=== PATIENT | female | born 1960 | race Caucasian/White ===

== ENCOUNTER 2016-05-24 18:19 | Emergency (ER) | payer OTHER, MEDICARE ==
[~2016-05-24] VITALS: Ht 162.6 cm; Wt 70.8 kg
[~2016-05-24 18:19] MED LIST: AGGRENOX (D1 CAPSULE FT; AGGRENOX (D1 CAPSULE PO; AMITRIPTYLINE50 MG PO; ASPIRIN 81MG TA81 MG PO; BUSPIRONE HCL15 MG PO; CANE XX; CELEXA20 MG PO; ESGIC PLUS PO; GLYBURIDE 5MG TA5 MG PO; GLYBURIDE2.5 MG PO; KEFLEX 500MG.500 MG PO; LEVOTHYROXIN0.125 MG NG; METFORMIN1000 MG PO; METFORMIN500 MG PO; METOPROLOL SUCC50 M1 PO; METOPROLOL25 MG; MOTRIN600 M1 PO; PROMETHAZINE25 M1 PO; RESTORIL30 MG PO; SIMVASTATIN10 MG PO; SIMVASTATIN20 MG PO; SYNTHROID 0.0.125 MG PO; SYNTHROID0.075 MG PO; TEGRETOL 100MG100 MG PO; TYLENOL ES500 M1 PO; VICODIN 5/500 T1 TAB PO; VICODIN 7.5/501 EACH PO; VITAMIN B12500 MCG PO; VOLTAREN75 MG PO
--- NOTE | 2016-05-24 18:40 | Urgent Treatment Center Report ---
History of Present Issue Date/Time Seen by Provider 05/24/16 1835 Visit Reason Pt arrived:Walked Presenting Problem:PT STATES SHE WAS AT WORK TODAY WHEN SHE MISSTEPPED AND FELL. STATES TRYING TO CATCH HERSELF AND INJURED LEFT WRIST AT APPROX 1500. STATES TAKING THREE TYLENOL AT 1600 WITH MINIMAL RELIEF. Location if Accident:Work Onset of symptoms date/time:05/24/16 or onset unknown for: Have you (or family members/close friends) recently traveled outside the [place]? N If Yes, where/when: Have you had exposure to infectious disease within the past month? TB? Other? Specify: Source patient Exam Limitations no limitations Comment 56-year-old female presents today for LEFT wrist pain. Patient states she was at work was taken in order out and fell over the curb and caught herself with her LEFT wrist. Patient states wrist hurts with movement. Also scraped her RIGHT knee Band-Aids in place patient denies any pain in the knee. ALLERGIES Coded Allergies: No Known Allergies (05/24/16) Home Medications Active Scripts Ibuprofen (Motrin) 600 MG PO Q6HP PRN PAIN PER PATIENT #30 TAB Prov: 02/13/13 Reported Medications AMITRIPTYLINE HCL (Amitriptyline HCl) 50 MG PO QHS CITALOPRAM HYDROBROMIDE (Citalopram HBr) 20 MG PO DAILY METFORMIN HCL (Metformin) 1,000 MG PO BID #60 TAB Glyburide (Glyburide 5MG) 10 MG PO BID Metoprolol Succinate Xl (Metoprolol ER 50MG) 50 MG PO DAILY Levothyroxine Sodium (Synthroid 0.125MG) 175 MCG PO DAILY Acetaminophen (Tylenol Extra-Strength) 500 MG PO Q6HP PRN PAIN Buspirone Hcl 15 MG PO PRN PRN MOOD #270 History Medical History General CAD? No Angina: Yes [place]: Yes Hypertension? Yes Hyperlipidemia? Yes CHF? No DVT? No PE? No COPD? No Asthma? No Anemia? No GERD? No Gastric ulcers? No GI Bleed? No Hernia? No Thyroid Problems? Yes Hypothyroidism? Yes CVA? Yes Seizures? Yes Diabetes? Yes Insulin Dependent: No Insulin Pump: No Home FSBS? No Renal Insuffiency? No UTI? Yes Stones? Yes BPH? No GB Disease: No Nephritic Syndrome? No Asplenia? No Hepatitis? No Sickle Cell Disease? No Arthritis? No Migraines? No Cataracts? No Glaucoma? No MRSA? No HIV? No TB? No Anxiety? Yes Depression? Yes Cancer? No Immunization HX DT/Tetanus 1-4 YRS Flu NEVER Pneumonia NEVER Surgical Hx Previous Surgery?Y YAEL CARDIAC STENT X 1 GASTRIC BYPASS PAROTID MASS- BENIGN SKIN GRAFT CARPEL TUNNEL R HAND LITHOTRIPSY 03/2012 Family History Family HX Diabetes Yes CAD Yes Hypertension Yes Hyperlipidemia Yes Cancer Yes TB Yes Social History Smoking Hx Smoker: Current Every Day Smoker Tobacco: Yes Type Cigarettes Packs/day < 1 Pack Alcohol Alcohol: No Review of Systems All Other Systems Reviewed and Negative Musculoskeletal see HPI, joint pain, muscle pain Physical Exam Vital Signs Vital Signs Date Time Temp Pulse Resp B/P Pulse O2 O2 Flow FiO2 Ox Delivery Rate 05/24 1828 98.6 87 20 175/884 95 - WBC >12,000 or <4,000 or 10% bands? 2 or more SIRS Criteria Met? B/P:175/884 MAP:647 Creatinine >2.0? UA output<0.5ml/kg/hr for 2 hrs? Platelet count >100,000? Lactate >2.0mmol/1? INR >1.2 or PTT > than 60 sec? Evidence of Organ Dysfunction? Provider documented clinical suspician of infection? Sepsis Criteria Count: 1 Sepsis Risk: General Appearance normal appearance Eye Exam - bilateral eye normal exam, bilateral eye PERRL Respiratory Status Yes: trachea midline, chest symmetrical, non tender chest. No: respiratory distress. Lung Sounds bilateral: normal breath sounds, lungs clear. Cardiovascular normal exam, regular rate/rhythm Extremities limited range of motion, LEFT wrist painful to palpation pulses good Neurologic alert, normal exam, oriented x 3 Medical Decision Making LABS/Meds/Orders Pt receiving controlled substance in ED? No Results/Orders Orders Procedure Date/time Status WRIST-3 VIEWS-LT 05/24 1832 Active XRAY/CT/US XRAY/CT/US XRAY wrist XR interpretation by reviewed by me (and boris) Xray Results normal/NAD, no fracture seen Departure Departure Time of Disposition 1902 Disposition DC Home or Self Care(routine) Clinical Impression Primary Impression: Wrist sprain Qualifiers: Encounter type: initial encounter Laterality: left Qualified Code: S63.502A - Unspecified sprain of left wrist, initial encounter Condition STABLE Referrals ALON JIMENEZ (Family) Patient Instructions DI for Wrist Sprain Additional Instructions Tylenol Motrin as needed for pain or discomfort ice/rest where splint, follow up with PCP on Thursday if radiologist reads any abnormalities of x-ray will notify patient. at 4128
[2016-05-24 19:10] VITALS: BP 175/884
--- NOTE | 2016-05-24 20:19 | RADIOLOGY REPORT PS360 ---
WRIST-3 VIEWS-LT COMPARISON: Left wrist 05/04/2011 HISTORY: Left wrist pain after a fall TECHNIQUE: AP lateral and oblique views FINDINGS: The distal radius and ulna appear intact. There is spurring of the tip of the navicular bone and there is minor narrowing of the first carpometacarpal joint. There is no definite carpal bone fracture. The pronator quadratus fat pad is well seen which is a normal finding. There is some mild diffuse soft tissue swelling dorsal aspect of the wrist. IMPRESSION: Mild soft tissue swelling of mild arthritic change first metacarpal metacarpal joint, no fracture seen.
== END 2016-05-24 19:23 | disposition home or self-care (01) ==
LOC: UTC 18:19
DX: S63.502A Unspecified sprain of left wrist, initial encounter (principal)

== ENCOUNTER 2016-09-05 10:16 | Emergency (ER) | payer SELFPAY ==
[~2016-09-05] VITALS: Ht 162.6 cm; Wt 69.4 kg
--- OUTSIDE RECORDS SUMMARY | 2016-09-05 10:24 | External Medical Summary Rpt ---
Author Author , SYLVIE MERCER Address Unknown Phone [email or web address] Care Team Providers Care Policy Specialist Name Role Phone CANDIDO URIOSTEGUI DO, Unavailable Unavailable CADNIDO BALDERASUX DO Purpose Continuity of Care Document - 07-27-2012 through 2016 Problems Code Diagnosis DOS Provider Status 244.9 244.9 02-13-2013 Yunior HYPOTHYROID [facility] IS NOS Hospital 250.00 250.00 DIAB 02-13-2013 Yunior [facility], TYPE Hospital II OR UNSPEC TYPE, NOT UNCNTRLD 305.1 305.1 02-13-2013 Yunior TOBACCO USE [facility] 401.9 401.9 02-13-2013 Yunior HYPERTENSIO [facility] N NOS [facility] 413.9 413.9 02-13-2013 Yunior ANGINA [facility] PECTORIS [facility] NEC/NOS 923.21 923.21 02-13-2013 Yunior CONTUSION [facility] E849.8 E849.8 02-13-2013 Yunior ACCIDENT IN [facility] E885.9 E885.9 FALL 02-13-2013 Yunior FROM [facility] SLIPPING, Hospital TRIPPING, OR STUMBLING [facility] Allergies, Adverse Reactions, Alerts Type Allergy to substance Adverse Reaction to Substance Substance Reaction Severity NO KNOWN ALLERGIES Unknown Unknown Medications Na ND Rx Da Fi Fi Am Da Di Ph RX Ph St me C No te ll ll ou ys ag ar # ys at rm s nt no ma ic us Or Da si cy ia de te s n re d AL 00 06 0 No ED 05 -1 NI 40 8- Lo SO 01 20 ng NE 82 13 er 0 20 Ac ti MG ve TA BL ET CE 62 06 0 No PH 75 -1 AL 60 8- Lo EX 29 20 ng IN 48 13 er 8 50 Ac 0 ti MG ve CA PS UL E Vital Signs 02-13-2013 11:00 Name Value Interpretat Reference Comment ion Range Body 98.3 [degF] Temperature BP 73 mm[Hg] Diastolic BP Systolic 116 mm[Hg] Heart 75 /min Rate/Pulse O2% 98 % Respiratory 20 /min Rate 02-13-2013 10:56 Name Value Interpretat Reference Comment ion Range Body 98.3 [degF] Temperature BP 73 mm[Hg] Diastolic BP Systolic 116 mm[Hg] Heart 75 /min Rate/Pulse O2% 98 % Respiratory 20 /min Rate 07-27-2012 01:28 Name Value Interpretat Reference Comment ion Range BP 95 mm[Hg] Diastolic BP Systolic 133 mm[Hg] Heart 82 /min Rate/Pulse O2% 97 % Respiratory 20 /min Rate 07-27-2012 01:25 Name Value Interpretat Reference Comment ion Range BP 95 mm[Hg] Diastolic BP Systolic 133 mm[Hg] Heart 82 /min Rate/Pulse O2% 97 % Respiratory 20 /min Rate Results Labs Lab Lab Date Result Refere Interp Status Commen Order Detail nces retati t Range on STREP SCREEN (RAPID) (07-27-2012 01:05) STREP NEGATIV complet SCREEN 013 E ed (RAPID) 01:05 Encounters Encounter Start End Date Code Location Performer Type Date Emergency UZMA URIOSTEGUI DO (ER) 4 10:26 4 11:[address] [facility] Emergency UZMA Ogden MD (ER) 3 00:56 3 01:28 [facility]
--- OUTSIDE RECORDS SUMMARY | 2016-09-05 10:24 | External Medical Summary Rpt ---
Author Author , SYLVIE MERCER Address Unknown Phone [email or web address] Care Team Providers Care Oem Sales Manager Name Role Phone CANDIDO URIOSTEGUI DO, Unavailable Unavailable CANDIDO BALDERASUX DO Purpose Continuity of Care Document - 07-27-2012 through 2016 Problems Code Diagnosis DOS Provider Status 244.9 244.9 02-13-2013 Yunior HYPOTHYROID [facility] IS NOS Hospital 250.00 250.00 DIAB 02-13-2013 Yunior [facility], TYPE Hospital II OR UNSPEC TYPE, NOT UNCNTRLD 305.1 305.1 02-13-2013 Yunior TOBACCO USE [facility] 401.9 401.9 02-13-2013 Yunior HYPERTENSIO [facility] N NOS [facility] 413.9 413.9 02-13-2013 Yunior ANGINA [facility] PECTORIS [facility] NEC/NOS 923.21 923.21 02-13-2013 Yunior CONTUSION [facility] E849.8 E849.8 02-13-2013 Yunior ACCIDENT IN [facility] E885.9 E885.9 FALL 02-13-2013 Yunior FROM [facility] SLIPPING, Hospital TRIPPING, OR STUMBLING [facility] Allergies, Adverse Reactions, Alerts Type Allergy to [...] ia de te s n re d [place] 00 06 0 No ED 05 -1 [...] URIOSTEGUI DO (ER) 4 10:26 4 11:01 [facility] Emergency UZMA Ogden MD (ER) 3 00:56 3 01:28 [facility]
--- OUTSIDE RECORDS SUMMARY | 2016-09-05 10:25 | External Medical Summary Rpt ---
Demographics Preferred Language Turkmen Marital Status Unknown Yazdanism Affiliation Unknown Race Unknown Ethnic Group Unknown Author Author , SYLVIE MERCER Address Unknown Phone Immunization Unable to retrieve immunization data due to connection failure with Immunization Registry. Please try again later.
--- OUTSIDE RECORDS SUMMARY | 2016-09-05 10:25 | External Medical Summary Rpt ---
Author Author [employer] Organization [employer] Address Unknown Phone Unavailable Purpose Continuity of Care Document - through 2016
--- OUTSIDE RECORDS SUMMARY | 2016-09-05 10:25 | External Medical Summary Rpt ---
Author Author SYLVIE Gomez, [employer] Organization [employer] Address Unknown Phone Unavailable
--- OUTSIDE RECORDS SUMMARY | 2016-09-05 10:25 | External Medical Summary Rpt ---
Demographics Preferred Language Slovak Marital Status Unknown Restorationist Affiliation Unknown Race Unknown Ethnic Group Unknown Author Author , SYLVIE MERCER Address Unknown Phone Immunization Unable to retrieve immunization data due to connection failure with Immunization Registry. Please try again later.
[2016-09-05] MEDS ORDERED: CYANOCOBAL1000 MCG/M PO (10:33)
[2016-09-05] MEDS ORDERED: POTASSIUM CHLO10 ME3 PO (10:34)
[2016-09-05] MEDS ORDERED: IRON TABLETS325 MG PO (10:34)
--- NOTE | 2016-09-05 10:50 | Urgent Treatment Center Report ---
History of Present Issue Date/Time Seen by Provider 09/05/16 1038 Visit Reason Pt arrived:Walked Presenting Problem:PT STATES NECK SORENESS, AND PAIN WHEN SHE TURNS HER HEAD FOR A FEW YEARS. STATES LAST NIGHT PAIN BECAME WORSE Location if Accident: Onset of symptoms date/time:/ or onset unknown for:MEDICAL HX UNKNOWN Have you (or family members/close friends) recently traveled outside the [place]? N If Yes, where/when: Have you had exposure to infectious disease within the past month? TB? Other? Specify: ALLERGIES Coded Allergies: No Known Allergies (05/24/16) Home Medications Active Scripts Ibuprofen (Motrin) 600 MG PO Q6HP PRN PAIN PER PATIENT #30 TAB Prov: 02/13/13 Reported Medications CITALOPRAM HYDROBROMIDE (Citalopram HBr) 20 MG PO DAILY Levothyroxine Sodium (Synthroid 0.125MG) 175 MCG PO DAILY Acetaminophen (Tylenol Extra-Strength) 500 MG PO Q6HP PRN PAIN AMITRIPTYLINE HCL (Amitriptyline HCl) 75 MG PO QHS METFORMIN HCL (Metformin) 500 MG PO BID #60 TAB Metoprolol Succinate Xl (Metoprolol ER 50MG) 25 MG PO DAILY Buspirone Hcl 15 MG PO TID #270 TAB VITAMIN B12 (Cyanocobalamin Injection) 1,000 MCG PO DAILY Ferrous Sulfate (Iron Tablet) 325 MG PO TID POTASSIUM CHL (Potassium Chloride) 10 MEQ PO DAILY History Medical History General CAD? No Angina: Yes [place]: Yes Hypertension? Yes Hyperlipidemia? Yes CHF? No DVT? No PE? No COPD? No Asthma? No Anemia? No GERD? No Gastric ulcers? No GI Bleed? No Hernia? No Thyroid Problems? Yes Hypothyroidism? Yes CVA? Yes Seizures? Yes Diabetes? Yes Insulin Dependent: No Insulin Pump: No Home FSBS? No Renal Insuffiency? No UTI? Yes Stones? Yes BPH? No GB Disease: No Nephritic Syndrome? No Asplenia? No Hepatitis? No Sickle Cell Disease? No Arthritis? No Migraines? No Cataracts? No Glaucoma? No MRSA? No HIV? No TB? No Anxiety? Yes Depression? Yes Cancer? No Immunization HX DT/Tetanus 1-4 YRS Flu NEVER Pneumonia NEVER Surgical Hx Previous Surgery?Y YAEL CARDIAC STENT X 1 GASTRIC BYPASS PAROTID MASS- BENIGN SKIN GRAFT CARPEL TUNNEL R HAND LITHOTRIPSY 03/2012 Family History Family HX Diabetes Yes CAD Yes Hypertension Yes Hyperlipidemia Yes Cancer Yes TB Yes Social History Smoking Hx Smoker: Current Every Day Smoker Tobacco: Yes Type Cigarettes Packs/day < 1 Pack Alcohol Alcohol: No Review of Systems All Other Systems Reviewed and Negative Comment Pain in her neck area when she turns her head and bends her neck down. feels like something is pulling her Physical Exam Vital Signs Vital Signs Date Time Temp Pulse Resp B/P Pulse O2 O2 Flow FiO2 Ox Delivery Rate 09/05 1029 97.8 85 18 151/87 96 General Appearance normal appearance, WD/WN, no apparent distress Neck normal inspection, mucle tightness noted, muscle in neck felt tight, no abnormalies noted Patient able to do full range of motion but has pain when she turns her head to the right or looks down Respiratory Status Yes: trachea midline, chest symmetrical, non tender chest. No: respiratory distress. 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 No Results/Orders Orders Procedure Date/time Status CERVICAL SPINE 4 OR 5 VIEWS 09/05 1045 Active XRAY/CT/US XRAY/CT/US XRAY C-spine XR interpretation by reviewed by me Xray Results degenerative changes noted Departure Departure Time of Disposition 1129 Disposition DC Home or Self Care(routine) Clinical Impression Primary Impression: Muscle spasm Condition STABLE Referrals ALON JIMENEZ (Family): 3 Days-Call Office Patient Instructions DI for Muscle Spasm Additional Instructions Follow up with family doctor Return if needed Take medication as prescribed Take Motrin/Tylenol for pain Discharge Counseling Counseled pt/family regarding diagnosis, test results, medications/RX, home care, follow up needs Prescriptions Current Visit Scripts Cyclobenzaprine Hcl (Flexeril) 5 MG PO TID #15 TAB at 1138
[2016-09-05] MEDS ORDERED: FLEXERIL10 MG PO (11:31)
[2016-09-05 11:34] VITALS: BP 151/87
--- NOTE | 2016-09-05 13:25 | RADIOLOGY REPORT PS360 ---
EXAM: CERVICAL SPINE 4 OR 5 VIEWS HISTORY: neck pain ORDERING PHYSICIAN: KRISTIAN OLMSTEAD APRN PATIENT AGE: 56 years COMPARISON: None FINDINGS: Normal alignment. No fracture or dislocation. No lytic or blastic change. There is mild degenerative disc disease at C5-C6 and moderate degenerative disc disease at C6-C7. Oblique views show the foramina are widely patent. IMPRESSION: Cervical spondylosis with degenerative disc disease C5-C6 and C6-C7
== END 2016-09-05 11:35 | disposition home or self-care (01) ==
LOC: UTC 10:16
DX: M62.838 Other muscle spasm (principal); I10 Essential (primary) hypertension; E11.9 Type 2 diabetes mellitus without complications; Z72.0 Tobacco use

== ENCOUNTER 2016-12-02 14:22 | Emergency (ER) | payer MEDICAID ==
[~2016-12-02] VITALS: Ht 160 cm; Wt 68.5 kg
[~2016-12-02 14:22] MED LIST changes: +CYANOCOBAL1000 MCG/M PO; +FLEXERIL10 MG PO; +IRON TABLETS325 MG PO; +POTASSIUM CHLO10 ME3 PO
[2016-12-02] MEDS ORDERED: MOBIC7.5 MG PO (14:58)
--- OUTSIDE RECORDS SUMMARY | 2016-12-02 14:58 | External Medical Summary Rpt | CCD ---
Author Author , SYLVIE MERCER Address Unknown Phone [email or web address] Care Team Providers Care Office Clerk Routine Name Role Phone CANDIDO URIOSTEGUI DO, Unavailable Unavailable CANDIDO URIOSTEGUI DO Purpose Continuity of Care Document - 07-27-2012 through 2016 Problems Code Diagnosis DOS Provider Status 244.9 244.9 02-13-2013 Yunior [facility]ID [facility] 250[facility]00 250.00 DIAB 02-13-[address] [facility], TYPE Hospital II OR UNSPEC TYPE, NOT UNCNTRLD 305.1 305.1 02-13-2013 Yunior TOBACCO USE [facility] 401.9 401.9 02-13-2013 Yunior HYPERTENSIO [facility] 413.9 413.9 02-13-2013 Yunior ANGINA [facility] PECTORIS [facility] NEC/NOS 923.21 923.21 02-13-2013 Yunior CONTUSION [facility] E849.8 E849.8 02-13-2013 Yunior ACCIDENT IN [facility] E885.9 E885.9 FALL 02-13-2013 Yunior FROM [facility] SLIPPING, Hospital TRIPPING, OR STUMBLING [facility] Allergies, Adverse Reactions, Alerts Type Allergy to [...] ia de te s n re d [place] 00 06 0 No ED 05 -1 [...] URIOSTEGUI DO (ER) 4 10:26 4 11:01 [facility] Emergency UZMA Ogden MD (ER) 3 00:56 3 01:28 [facility]
--- OUTSIDE RECORDS SUMMARY | 2016-12-02 14:58 | External Medical Summary Rpt | CCD ---
Demographics Preferred Language Chilean Marital Status Unknown Zoroastrian Affiliation Unknown Race Unknown Ethnic Group Unknown Author Author , SYLVIE MERCER Address Unknown Phone Immunization No patient found.
--- OUTSIDE RECORDS SUMMARY | 2016-12-02 14:58 | External Medical Summary Rpt | CCD ---
Demographics Preferred Language Japanese Marital Status Unknown Buddhist Affiliation Unknown Race Unknown Ethnic Group Unknown Author Author SYLVIE Address Unknown Phone [email or web address] Purpose Continuity of Care Document - through 2016
--- OUTSIDE RECORDS SUMMARY | 2016-12-02 14:58 | External Medical Summary Rpt | CCD ---
Demographics Preferred Language Nicaraguan Marital Status Unknown Denominational Affiliation Unknown Race Unknown Ethnic Group Unknown Author Author , SYLVIE MERCER Address Unknown Phone Immunization No patient found.
--- OUTSIDE RECORDS SUMMARY | 2016-12-02 14:58 | External Medical Summary Rpt ---
Author Author SYLVIE Gomez, SYLVIE [employer] Organization [employer] Address Unknown Phone Unavailable
--- OUTSIDE RECORDS SUMMARY | 2016-12-02 14:58 | External Medical Summary Rpt | CCD ---
Demographics Preferred Language Portuguese Marital Status Unknown Sikhism Affiliation Unknown Race Unknown Ethnic Group Unknown Author Author SYLVIE Address Unknown Phone [email or web address] Purpose Continuity of Care Document - through 2016
--- OUTSIDE RECORDS SUMMARY | 2016-12-02 14:58 | External Medical Summary Rpt | CCD ---
Author Author , SYLVIE MERCER Address Unknown Phone [email or web address] Care Team Providers Care Police Crime Scene Technician Name Role Phone CANDIDO URIOSTEGUI DO, Unavailable Unavailable CANDIDO URIOSTEGUI DO Purpose Continuity of Care Document - 07-27-2012 through 2016 Problems Code Diagnosis DOS Provider Status 244.9 244.9 02-13-2013 Yunior [facility]ID [facility] 250.00 250.00 DIAB 02-13-2013 Yunior [facility], TYPE Hospital II OR UNSPEC TYPE, NOT UNCNTRLD 305.1 305.1 02-13-2013 Yunior TOBACCO USE [facility] 401.9 401.9 02-13-2013 Yunior HYPERTENSIO [facility] 413.9 413.9 02-13-2013 Yunior ANGINA [facility] PECTORIS [facility] NEC/NOS 923.21 923.21 02-13-2013 Yunior CONTUSION [facility] E849.8 E849.8 02-13-2013 Yunior ACCIDENT IN [facility] E885.9 E885.9 FALL 02-13-2013 Yunior FROM [facility] SLIPPING, Hospital TRIPPING, OR STUMBLING [facility] Allergies, Adverse Reactions, Alerts Type [...] ia de te s n re d [place] 00 06 0 No ED 05 -1 [...] URIOSTEGUI DO (ER) 4 10:26 4 11:01 [facility] Emergency UZMA Ogden MD (ER) 3 00:56 3 01:28 [facility]
[2016-12-02 14:59] VITALS: BP 177/93
--- NOTE | 2016-12-02 15:00 | Urgent Treatment Center Report ---
History of Present Issue Date/Time Seen by Provider 12/02/16 1440 Visit Reason Pt arrived:Walked Presenting Problem:PT C/O OF PAIN IN BOTH INDEX FINGERS. Location if Accident: Onset of symptoms date/time:/ or onset unknown for:MEDICAL HX UNKNOWN Have you (or family members/close friends) recently traveled outside the [place]? N If Yes, where/when: Have you had exposure to infectious disease within the past month? TB? Other? Specify: Patient state that she has been having pain and swelling in bilateral hands States that she has been having more pain in her ALLERGIES Coded Allergies: No Known Allergies (05/24/16) Home Medications Active Scripts Cyclobenzaprine Hcl (Flexeril) 5 MG PO TID #15 TAB Prov: 09/05/16 Ibuprofen (Motrin) 600 MG PO Q6HP PRN PAIN PER PATIENT #30 TAB Prov: 02/13/13 Reported Medications CITALOPRAM HYDROBROMIDE (Citalopram HBr) 20 MG PO DAILY Levothyroxine Sodium (Synthroid 0.125MG) 175 MCG PO DAILY Acetaminophen (Tylenol Extra-Strength) 500 MG PO Q6HP PRN PAIN AMITRIPTYLINE HCL (Amitriptyline HCl) 75 MG PO QHS METFORMIN HCL (Metformin) 500 MG PO BID #60 TAB Metoprolol Succinate Xl (Metoprolol ER 50MG) 25 MG PO DAILY Buspirone Hcl 15 MG PO TID #270 TAB VITAMIN B12 (Cyanocobalamin Injection) 1,000 MCG PO DAILY Ferrous Sulfate (Iron Tablet) 325 MG PO TID POTASSIUM CHL (Potassium Chloride) 10 MEQ PO DAILY History Medical History General CAD? No Angina: Yes [place]: Yes Hypertension? Yes Hyperlipidemia? Yes CHF? No DVT? No PE? No COPD? No Asthma? No Anemia? No GERD? No Gastric ulcers? No GI Bleed? No Hernia? No Thyroid Problems? Yes Hypothyroidism? Yes CVA? Yes Seizures? Yes Diabetes? Yes Insulin Dependent: No Insulin Pump: No Home FSBS? No Renal Insuffiency? No UTI? Yes Stones? Yes BPH? No GB Disease: No Nephritic Syndrome? No Asplenia? No Hepatitis? No Sickle Cell Disease? No Arthritis? No Migraines? No Cataracts? No Glaucoma? No MRSA? No HIV? No TB? No Anxiety? Yes Depression? Yes Cancer? No More? No Immunization HX DT/Tetanus 1-4 YRS Flu NEVER Pneumonia NEVER Surgical Hx Previous Surgery?Y YAEL CARDIAC STENT X 1 GASTRIC BYPASS PAROTID MASS- BENIGN SKIN GRAFT CARPEL TUNNEL R HAND LITHOTRIPSY 03/2012 Family History Family HX Diabetes Yes CAD Yes Hypertension Yes Hyperlipidemia Yes Cancer Yes TB Yes Social History Smoking Hx Smoker: Current Every Day Smoker Tobacco: Yes Type Cigarettes Packs/day < 1 Pack Alcohol Alcohol: No Review of Systems All Other Systems Reviewed and Negative Comment Pain in bilateral hands and fingers wanting a referral to rheumotologist Physical Exam Vital Signs Vital Signs Date Time Temp Pulse Resp B/P Pulse O2 O2 Flow FiO2 Ox Delivery Rate 12/02 1459 97.9 89 20 177/93 96 12/02 1429 97.9 89 20 177/93 96 General Appearance normal appearance, WD/WN, no apparent distress Respiratory Status Yes: trachea midline, chest symmetrical, non tender chest. No: respiratory distress. Cardiovascular normal exam, regular rate/rhythm Extremities Pain and swelling at times for last several weeks State that her family doctor is out of town so she wanted to see if we could send her Neurologic alert, normal exam, oriented x 3 Medical Decision Making LABS/Meds/Orders Pt receiving controlled substance in ED? No Departure Departure Time of Disposition 1444 Disposition DC Home or Self Care(routine) Clinical Impression Primary Impression: Hand pain Qualifiers: Laterality: bilateral Qualified Code: M79.641 - Pain in right hand Condition STABLE Referrals ALON JIMENEZ (Family) Patient Instructions Arthritis (Alternative Therapy), Rheumatoid Arthritis ( Alternative Therapy), Rheumatoid Arthritis (Alternative Therapy) Additional Instructions Follow up with family doctor for referral to Rhemotologist Return if needed Motrin/Tylenol and creams to help with swelling or pain Discharge Counseling Counseled pt/family regarding diagnosis, medications/RX, home care, follow up needs Prescriptions Current Visit Scripts Meloxicam (Mobic 7.5MG) 7.5 MG PO BID #30 TAB at 3137
== END 2016-12-02 15:00 | disposition home or self-care (01) ==
LOC: UTC 14:22
DX: M79.641 Pain in right hand (principal); M79.642 Pain in left hand; I10 Essential (primary) hypertension; E03.9 Hypothyroidism, unspecified; E11.9 Type 2 diabetes mellitus without complications; F41.8 Other specified anxiety disorders; F17.210 Nicotine dependence, cigarettes, uncomplicated

== ENCOUNTER 2017-01-16 09:04 | Emergency (ER) | payer OTHER, MEDICAID ==
[~2017-01-16] VITALS: Ht 160 cm; Wt 72.1 kg
[~2017-01-16 09:04] MED LIST changes: +MOBIC7.5 MG PO
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
--- OUTSIDE RECORDS SUMMARY | 2017-01-16 09:47 | External Medical Summary Rpt | CCD ---
Demographics Preferred Language Cypriot Marital Status Unknown Methodist Affiliation Unknown Race Unknown Ethnic Group Unknown Author Author , SYLVIE MERCER Address Unknown Phone Immunization No patient found.
--- OUTSIDE RECORDS SUMMARY | 2017-01-16 09:47 | External Medical Summary Rpt | CCD ---
Demographics Preferred Language Bermudian Marital Status Unknown Taoist Affiliation Unknown Race Unknown Ethnic Group Unknown Author Author , SYLVIE MERCER Address Unknown Phone Immunization No patient found.
[2017-01-16 10:19] VITALS: BP 165/98
== END 2017-01-16 10:20 | disposition home or self-care (01) ==
LOC: ER 09:04
PROC: 0HQEXZZ Repair Left Lower Arm Skin, External Approach (ICD-10-PCS; principal; 2017-01-16)
DX: S61.512A Laceration without foreign body of left wrist, initial encounter (principal); W26.8XXA Contact with other sharp object(s), not elsewhere classified, initial encounter; Y93.89 Activity, other specified; Y92.511 Restaurant or cafe as the place of occurrence of the external cause; Y99.0 Civilian activity done for income or pay; Z23 Encounter for immunization; I10 Essential (primary) hypertension; I25.2 Old myocardial infarction; F41.9 Anxiety disorder, unspecified; F32.9 Major depressive disorder, single episode, unspecified; F17.210 Nicotine dependence, cigarettes, uncomplicated; Z95.5 Presence of coronary angioplasty implant and graft; Z90.710 Acquired absence of both cervix and uterus; Z98.84 Bariatric surgery status; E11.9 Type 2 diabetes mellitus without complications; E03.9 Hypothyroidism, unspecified; Z79.84 Long term (current) use of oral hypoglycemic drugs; Z79.899 Other long term (current) drug therapy